=== PATIENT | male | born 1950 | race Caucasian/White ===

== ENCOUNTER 2018-01-24 16:46 | Emergency (ER) | payer MEDICARE, OTHER ==
[~2018-01-24 16:46] MED LIST changes: -ASPI-1471 PO; -LEVE750T74 PO
[2018-01-24] MEDS ORDERED: ASPI-1471 PO (16:52)
[2018-01-24] MEDS ORDERED: EMS NS 0.9%(*) 1000 ML BAG 1,000 ML IV ONE (17:00)
--- NOTE | 2018-01-24 17:03 | ER Report ---
History and Physical Time Seen By MD: 16:53 Hx. of Stated Complaint: PT WAS HAVING BBQ WITH FAMILY WHEN HE DEVELOPED CP, HAD A "HOT FLASH" THEN HAD A SEIZURE HPI/ROS CHIEF COMPLAINT: Seizure HISTORY OF PRESENT ILLNESS: 67-year-old male patient presents to the emergency room by EMS with complaint of a seizure. Patient states that he was a home and felt very hot. He came inside and sat down catch. His states when he did that that he started breathing heavily, and that lasted for approximately 2 minutes. He did have some rhythmic movements, when that stopped he was confused. He was unable to tell the EMS crew who the president was, he is unable to tell them where he was, however he did not really was. Patient at this time states that he is having chest pain, neck pain, headache, dizziness. Patient has not t aken any medication for this. REVIEW OF SYSTEMS: Respiratory: No cough, no dyspnea. Cardiovascular: No chest pain, no palpitations. Gastrointestinal: No vomiting, no abdominal pain. Musculoskeletal: No back pain. Allergies: Coded Allergies: No Known Drug Allergies (Verified , 01/24/18) Home Meds Active Scripts Levetiracetam (KEPPRA) 750 Mg Tablet, 750 MG PO BID, #180 TAB Prov:IVON NDIAYE ART HISTORY PROFESSOR 01/24/18 Reported Medications Aspirin (ASPIR 81) 81 Mg Tablet.dr, 81 MG PO QDAY, TAB 01/24/18 Lutein (Lutein) 20 Mg Capsule, 20 MG PO DAILY, 0 Refills 05/19/11 Cholecalciferol (Vitamin D) 2,000 Unit Capsule, 2000 UNIT PO DAILY, 0 Refills 05/19/11 Atorvastatin (Lipitor) 10 Mg Tab, 20 MG PO QAM 07/31/06 Discontinued Scripts Meclizine Hcl (MECLIZINE HCL) 25 Mg Tab.chew, 50 MG PO Q6H for dizziness, #60 TAB.CHEW Prov:TOYA OCASIO DO 03/28/15 Ondansetron (ZOFRAN ODT) 4 Mg Tab.rapdis, 8 MG PO Q6H for Nausea, #15 Prov:TOYA OCASIO DO 03/28/15 Mometasone Furoate (NASONEX) 17 Gm [place], 2 SPRAYS NA DAILY, #1 SPRAY 2 sprays each nostril daily Prov:TOYA OCASIO DO 03/28/15 Past Medical/Surgical History Patient has a past medical history of hyperlipidemia, hand fracture, alcohol use. Patient has surgical history of cataract surgery, surgery for detached retina in the left eye, laminectomy, rotator cuff surgery, appendectomy. Patient has a family medical history of cancer. Reviewed Nurses Notes: Yes Hx Smoking: No Smoking Status: Never Smoker Hx Substance Use Disorder: No Hx Alcohol Use: Yes (VERY LITTLE) Constitutional Vital Sign - Last 24 Hours 01/24/18 01/24/18 01/24/18 01/24/18 16:47 17:00 17:15 17:36 Temp 98.2 Pulse 80 75 70 Resp 16 13 8 B/P (MAP) 146/71 128/66 (86) 125/65 (85) Pulse Ox 92 93 91 O2 Delivery Room Air 01/24/18 01/24/18 01/24/18 01/24/18 17:45 18:00 18:15 18:20 Pulse 65 65 67 67 Resp 15 12 21 18 B/P (MAP) 126/67 (86) Pulse Ox 92 93 93 93 01/24/18 01/24/18 01/24/18 01/24/18 18:30 18:35 18:50 19:00 Pulse 66 69 Resp 18 19 B/P (MAP) 134/71 (92) 144/78 (100) Pulse Ox 93 94 01/24/18 01/24/18 01/24/18 01/24/18 19:05 19:20 19:25 19:30 Pulse 64 65 63 Resp 17 20 15 B/P (MAP) 136/74 (94) Pulse Ox 93 93 95 01/24/18 01/24/18 01/24/18 01/24/18 19:40 19:55 20:00 20:10 Pulse 61 63 73 Resp 12 27 16 B/P (MAP) 145/82 (103) Pulse Ox 94 93 01/24/18 01/24/18 01/24/18 01/24/18 20:25 20:30 20:40 20:55 Pulse 64 59 58 Resp 10 22 21 B/P (MAP) 127/72 (90) Pulse Ox 93 93 95 01/24/18 01/24/18 01/24/18 01/24/18 21:00 21:15 21:30 21:45 Pulse 60 61 60 62 Resp 12 12 16 16 B/P (MAP) 135/70 (91) 133/68 (89) Pulse Ox 91 94 93 92 01/24/18 01/24/18 22:00 22:15 Pulse 59 57 Resp 10 15 B/P (MAP) 135/70 (91) Pulse Ox 91 92 Physical Exam General Appearance: The patient is alert, has no immediate need for airway protection and no current signs of toxicity. Eyes: Pupils equal and round no injection. Extra ocular movements intact. ENT: Patient does have blood on his lips, he has bitten the tip of his tongue. Respiratory: Chest is non tender, lungs are clear to auscultation. Cardiac: regular rate and rhythm Gastrointestinal: Abdomen is soft and non tender, no masses, bowel sounds normal. Musculoskeletal: Neck: Neck is supple and non tender. Extremities have full range of motion and are non tender. Skin: No rashes or lesions. Neuro: Patient is alert and oriented 2, cranial nerves II through XII grossly intact. Patient has equal strength bilaterally. DIFFERENTIAL DIAGNOSIS: After history and physical exam differential diagnosis was considered for a seizure including but not limited to electrolyte abnormality, alcohol withdrawal, medication noncompliance, head injury, and breakthrough seizure. Medical Decision Making Data Points Result Diagram: 01/24/18 1630 01/24/18 1630 Laboratory Hematology Test 01/24/18 08:23 01/24/18 16:30 01/24/18 17:40 01/24/18 20:15 Urine Color Yellow Urine Clarity Slightly-cloudy Urine pH 5.0 pH (4.8-9.5) Urine Specific [place] 1.023 Urine Protein Negative mg/dL (NEGATIVE) Urine Glucose (UA) Negative mg/dL (NEGATIVE) Urine Ketones Negative mg/dL (NEGATIVE) Urine Blood Negative (NEGATIVE) Urine Nitrite Negative (NEGATIVE) Urine Bilirubin Negative (NEGATIVE) Urine Urobilinogen Negative mg/dL (0.2-1.9) Urine Leukocyte Esterase Negative (NEGATIVE) Urine RBC 3 /HPF (0-2/HPF) Urine WBC 1 /HPF (0-5/HPF) Urine Squamous Epithelial Cells None /LPF (</=FEW) Urine Bacteria Negative /HPF (NONE-FEW) Urine Hyaline Casts Few /LPF (NONE-FEW) Urine Mucus Few /HPF (NONE-FEW) Red Blood Count 4.66 M/uL (4.00-5.60) Mean Corpuscular Volume 96.7 fL (80.0-96.0) Mean Corpuscular Hemoglobin 31.7 pg (26.0-33.0) Mean Corpuscular Hemoglobin Concent 32.8 g/dL (32.0-36.0) Red Cell Distribution Width 13.8 % (11.5-14.5) Mean Platelet Volume 9.2 fL (7.2-11.1) Neutrophils (%) (Auto) 49.8 % (39.4-72.5) Lymphocytes (%) (Auto) 38.7 % (17.6-49.6) Monocytes (%) (Auto) 7.3 % (4.1-12.4) Eosinophils (%) (Auto) 3.8 % (0.4-6.7) Basophils (%) (Auto) 0.4 % (0.3-1.4) Nucleated RBC Relative Count (auto) 0.1 /100WBC Neutrophils # (Auto) 9.5 K/uL (2.0-7.4) Lymphocytes # (Auto) 7.4 K/uL (1.3-3.6) Monocytes # (Auto) 1.4 K/uL (0.3-1.0) Eosinophils # (Auto) 0.7 K/uL (0.0-0.5) Basophils # (Auto) 0.1 K/uL (0.0-0.1) Nucleated RBC Absolute Count (auto) 0.01 K/uL Sodium Level 141 mmol/L (137-145) Potassium Level 3.1 mmol/L (3.5-5.0) Chloride Level 101 mmol/L (98-107) Carbon Dioxide Level 14 mmol/L (22-30) Blood Urea Nitrogen 18 mg/dl (9-21) Creatinine 1.20 mg/dl (0.66-1.25) Glomerular Filtration Rate Calc > 60.0 Random Glucose 96 mg/dl (75-110) Calcium Level 9.3 mg/dl (8.4-10.2) Magnesium Level 2.7 mg/dl (1.7-2.2) Total Bilirubin 0.5 mg/dl (0.2-1.3) Aspartate Amino Transf (AST/SGOT) 29 U/L (0-35) Alanine Aminotransferase (ALT/SGPT) 27 U/L (0-56) Alkaline Phosphatase 63 U/L (0-126) Troponin I < 0.012 ng/ml Total Protein 7.9 g/dl (6.3-8.2) Albumin 4.9 g/dl (3.5-5.0) Urine Opiates Screen Negative Urine Barbiturates Screen Negative Ur Tricyclic Antidepressants Screen Negative Urine Phencyclidine Screen Negative Urine Amphetamines Screen Negative Urine Benzodiazepines Screen Negative Urine Cocaine Screen Negative Urine Cannabinoids Screen Positive CSF Appearance Clear (CLEAR) CSF Color Colorless (COLORLESS) CSF WBC 19 /mm3 (0-5) CSF RBC 712 /mm3 CSF Glucose 52 mg/dl CSF Total Protein 76 mg/dl (15-50) Haemophilus influenzae B Antigen Negative (NEGATIVE) Neisseria meningitidis A/Y Antigen Negative (NEGATIVE) Neisseria meningitidis C/W135 Ag Negative (NEGATIVE) N. meningitidis B/E.coli K1 Ag Negative (NEGATIVE) Group B Streptococcus Antigen Negative (NEGATIVE) Streptococcus pneumoniae Antigen Negative (NEGATIVE) Chemistry Test 01/24/18 08:23 01/24/18 16:30 01/24/18 17:40 01/24/18 20:15 Urine Color Yellow Urine Clarity Slightly-cloudy Urine pH 5.0 pH (4.8-9.5) Urine Specific [place] 1.023 Urine Protein Negative mg/dL (NEGATIVE) Urine Glucose (UA) Negative mg/dL (NEGATIVE) Urine Ketones Negative mg/dL (NEGATIVE) Urine Blood Negative (NEGATIVE) Urine Nitrite Negative (NEGATIVE) Urine Bilirubin Negative (NEGATIVE) Urine Urobilinogen Negative mg/dL (0.2-1.9) Urine Leukocyte Esterase Negative (NEGATIVE) Urine RBC 3 /HPF (0-2/HPF) Urine WBC 1 /HPF (0-5/HPF) Urine Squamous Epithelial Cells None /LPF (</=FEW) Urine Bacteria Negative /HPF (NONE-FEW) Urine Hyaline Casts Few /LPF (NONE-FEW) Urine Mucus Few /HPF (NONE-FEW) White Blood Count 19.1 k/uL (4.5-11.0) Red Blood Count 4.66 M/uL (4.00-5.60) Hemoglobin 14.8 g/dL (14.0-18.0) Hematocrit 45.0 % (42.0-52.0) Mean Corpuscular Volume 96.7 fL (80.0-96.0) Mean Corpuscular Hemoglobin 31.7 pg (26.0-33.0) Mean Corpuscular Hemoglobin Concent 32.8 g/dL (32.0-36.0) Red Cell Distribution Width 13.8 % (11.5-14.5) Platelet Count 314 K/uL (150-450) Mean Platelet Volume 9.2 fL (7.2-11.1) Neutrophils (%) (Auto) 49.8 % (39.4-72.5) Lymphocytes (%) (Auto) 38.7 % (17.6-49.6) Monocytes (%) (Auto) 7.3 % (4.1-12.4) Eosinophils (%) (Auto) 3.8 % (0.4-6.7) Basophils (%) (Auto) 0.4 % (0.3-1.4) Nucleated RBC Relative Count (auto) 0.1 /100WBC Neutrophils # (Auto) 9.5 K/uL (2.0-7.4) Lymphocytes # (Auto) 7.4 K/uL (1.3-3.6) Monocytes # (Auto) 1.4 K/uL (0.3-1.0) Eosinophils # (Auto) 0.7 K/uL (0.0-0.5) Basophils # (Auto) 0.1 K/uL (0.0-0.1) Nucleated RBC Absolute Count (auto) 0.01 K/uL Glomerular Filtration Rate Calc > 60.0 Calcium Level 9.3 mg/dl (8.4-10.2) Magnesium Level 2.7 mg/dl (1.7-2.2) Total Bilirubin 0.5 mg/dl (0.2-1.3) Aspartate Amino Transf (AST/SGOT) 29 U/L (0-35) Alanine Aminotransferase (ALT/SGPT) 27 U/L (0-56) Alkaline Phosphatase 63 U/L (0-126) Troponin I < 0.012 ng/ml Total Protein 7.9 g/dl (6.3-8.2) Albumin 4.9 g/dl (3.5-5.0) Urine Opiates Screen Negative Urine Barbiturates Screen Negative Ur Tricyclic Antidepressants Screen Negative Urine Phencyclidine Screen Negative Urine Amphetamines Screen Negative Urine Benzodiazepines Screen Negative Urine Cocaine Screen Negative Urine Cannabinoids Screen Positive CSF Appearance Clear (CLEAR) CSF Color Colorless (COLORLESS) CSF WBC 19 /mm3 (0-5) CSF RBC 712 /mm3 CSF Glucose 52 mg/dl CSF Total Protein 76 mg/dl (15-50) Haemophilus influenzae B Antigen Negative (NEGATIVE) Neisseria meningitidis A/Y Antigen Negative (NEGATIVE) Neisseria meningitidis C/W135 Ag Negative (NEGATIVE) N. meningitidis B/E.coli K1 Ag Negative (NEGATIVE) Group B Streptococcus Antigen Negative (NEGATIVE) Streptococcus pneumoniae Antigen Negative (NEGATIVE) Toxicology Test 01/24/18 17:40 Urine Opiates Screen Negative Urine Barbiturates Screen Negative Ur Tricyclic Antidepressants Screen Negative Urine Phencyclidine Screen Negative Urine Amphetamines Screen Negative Urine Benzodiazepines Screen Negative Urine Cocaine Screen Negative Urine Cannabinoids Screen Positive Urinalysis Test 01/24/18 08:23 Urine Color Yellow Urine Clarity Slightly-cloudy Urine pH 5.0 pH (4.8-9.5) Urine Specific [place] 1.023 Urine Protein Negative mg/dL (NEGATIVE) Urine Glucose (UA) Negative mg/dL (NEGATIVE) Urine Ketones Negative mg/dL (NEGATIVE) Urine Blood Negative (NEGATIVE) Urine Nitrite Negative (NEGATIVE) Urine Bilirubin Negative (NEGATIVE) Urine Urobilinogen Negative mg/dL (0.2-1.9) Urine Leukocyte Esterase Negative (NEGATIVE) Urine RBC 3 /HPF (0-2/HPF) Urine WBC 1 /HPF (0-5/HPF) Urine Squamous Epithelial Cells None /LPF (</=FEW) Urine Bacteria Negative /HPF (NONE-FEW) Urine Hyaline Casts Few /LPF (NONE-FEW) Urine Mucus Few /HPF (NONE-FEW) EKG/Imaging EKG Interpretation 12 lead EKG: Rhythm: normal sinus rhythm [place]: normal QRS: normal ST segments: normal Imaging CHEST SINGLE AP Indication: Seizure.. Comparison: None available Findings: Cardiomediastinal silhouette and pulmonary vessels within normal limits. There is no focal infiltrate or lobar consolidation. No pneumothorax or pleural effusion. No nodule. Upper abdomen is unremarkable. No acute bony abnormality. IMPRESSION: 1. No acute cardiopulmonary process. Report Dictated By: Lazaro Brito at 01/24/2018 5:52 PM Report E-Signed By: Lazaro Brito at 01/24/2018 5:[address] Head without contrast Indication: Seizure. Comparison: None available Technique: Axial CT images were obtained through the brain from the skull base to the vertex without administration of IV contrast. Reformatted coronal and sagittal images were also obtained. One of the following dose optimization techniques was utilized in the performance of this exam: automated exposure control; adjustment of the mA and/or kV according to the patient's size; or use of an iterative reconstruction technique. Specific details can be referenced in the facility's radiology CT exam operational policy. Findings: No evidence of mass, mass effect, or midline shift. No acute intracranial hemorrhage or acute territorial infarction. No extra-axial fluid collection or hydrocephalus. No abnormal density. [place]/white matter differentiation appears normal. Bony structures show no fractures or lesions. The visualized paranasal sinuses and mastoid air cells are clear. IMPRESSION: 1. No acute intracranial abnormality. Report Dictated By: Lazaro Brito at 01/24/2018 5:49 PM Report E-Signed By: Lazaro Brito at 01/24/2018 5:52 PM ED Course/Re-evaluation ED Course Patient was admitted to exam room, history and physical were obtained. Differential diagnoses were considered. On exam patient is alert and oriented to himself and location. Patient is not oriented to date or present time. Patient did not have any weakness, he had equal strength bilaterally, he had no facial droop. A IV was started, CBC, CMP, urinalysis were obtained. CT scan of the head and chest x-ray were done. CT scan of the head was negative, chest x-ray was also negative. Patient had an elevated white count of 19,000 with no left shift, CMP was unremarkable except for he did have a low CO2 of 14. EKG was done which showed a normal sinus rhythm. I discussed the case with Dr. [place]jon, neurolog[place] [facility] [place] he felt the patient did need to have anticonvulsants. He wanted me to press on him that he was unable to drive until cleared by a neurologist. He also was concerned about the elevated white count. He recommended doing a lumbar puncture to rule out any meningitis, even though the patient had no meningeal signs or fevers. The lumbar puncture was done as described below. We did give him some Keppra, 1 g, and monitoring for 2 hours after that. During that time were waiting for the lab results. Patient did have a red blood cell count of 712 and 533 on tubes one and 3 from the lumbar puncture, white count was 19, protein was 52 and glucose was normal. During this time patient has not had a repeat seizure in the emergency room. I did discuss the case with Dr. Ritter, hospitalist, who felt that he was concerned about the elevated red blood cells. He recommended talking with neurology. I did speak with Dr. Morejon, he felt the patient likely had an aseptic meningitis, but felt uncomfortable with the blood and did feel the patient should probably be tra nsferred to a facility in [place]. At that time I did call and discuss the case with Dr. Ureña, neurologist at [facility], I reviewed the case with him including the spinal tap and the lab results. He felt that the likelihood of a meningitis was unlikely, as patient does not have any meningeal signs. He said that the blood was likely from a traumatic tap. His recommendation was that we can go ahead and discharge patient home as long as I felt comfortable with that. Or if I felt uncomfortable that patient could be admitted and monitored overnight. I discussed with him that the patient has no complaints, no fever and did not have a headache until I done the lumbar puncture. I believe that is likely cause of his headache. I felt that the patient could go home as long as he felt up to that. I discussed this with patient and his . They prefer to go home. I did give him strict instructions on to return to the emergency room with any seizures, worse headache of his en tire life or the development of fevers. Patient is verbalized understanding and agreement with plan. We will go ahead and discharge him home at this time with close follow-up to neurology. Procedure: Lumbar puncture. Indication: Seizure with elevated white count After verbal informed consent from patient explaining the risks including infection, bleeding, and neurologic damage, a lumbar puncture was performed after the patient was prepped and draped in the usual fashion. The back was anesthetized with 1% lidocaine. Approximately 4 cc of clear fluid was obtained. Opening pressure was not obtained. There were no complications. The procedure was performed by myself under the direct supervision of Dr. Abrams. Decision to Disposition Date: Jan 24, 2018 Decision to Disposition Time: 22:52 Depart Departure Latest Vital Signs Vital Signs Date Time Temp Pulse Resp B/P (MAP) Pulse Ox O2 Delivery O2 Flow Rate FiO2 9/16/18 22:15 57 15 92 01/24/18 22:00 135/70 (91) 01/24/18 16:47 98.2 Room Air Impression: Primary Impression: Seizure Condition: Improved Disposition: HOME OR SELF-CARE Referrals: NERISSA LOCKHART MD (PCP) New Scripts Levetiracetam (KEPPRA) 750 Mg Tablet 750 MG PO BID, #180 TAB Prov: IVON NDIAYE 01/24/18 Patient Instructions: New-Onset Seizure in Adults (ED) Additional Instructions: Increase fluid intake. Get plenty of rest. No driving until you are cleared by a neurologist. Follow up with a Neurologist [place]: [facility] [address] [place], [place] [facility] [address] [place], [place] Return to the ER if you develop fevers, the worse headache of your life or you have another seizure. Follow up with your primary care provider in the next 1-2 weeks. Take the medication as prescribed. IVON NDIAYE Jan 24, 2018 17:03
[2018-01-24 17:11] LABS: PLATELET COUNT, AUTOMATED 314 K/uL (150-450)
--- NOTE | 2018-01-24 17:55 | RADIOLOGY IMAGING REPORT ---
FACILITY: [facility] [place] PATIENT NAME: Malachi Owusu : 1950 MR: [id number] V: [id number] EXAM DATE: ORDERING PHYSICIAN: IVON NDIAYE TECHNOLOGIST: Location: [facility] [place] Patient: Malachi Owusu : 1950 Visit/Account:[id number] Date of Sevice: 01/24/2018 CT Head without contrast Indication: Seizure. Comparison: None available Technique: Axial CT images were obtained through the brain from the skull base to the vertex without administration of IV contrast. Reformatted coronal and sagittal images were also obtained. One of the following dose optimization techniques was utilized in the performance of this exam: autom ated exposure control; adjustment of the mA and/or kV according to the patient's size; or use of an i terative reconstruction technique. Specific details can be referenced in the facility's radiology CT exam operational policy. Findings: No evidence of mass, mass effect, or midline shift. No acute intracranial hemorrhage or acute territorial infarction. No extra-axial fluid collection or hydrocephalus. No abnormal density. [place]/white matter differentiat ion appears normal. Bony structures show no fractures or lesions. The visualized paranasal sinuses and mastoid air cells are clear. IMPRESSION: 1. No acute intracranial abnormality. Report Dictated By: Lazaro Brito at 01/24/2018 5:49 PM Report E-Signed By: Lazaro Brito at 01/24/2018 5:52 PM WSN:[id number]
--- NOTE | 2018-01-24 17:57 | RADIOLOGY IMAGING REPORT ---
FACILITY: [facility] [place] PATIENT NAME: Malachi Owusu : 1950 MR: [id number] V: [id number] EXAM DATE: ORDERING PHYSICIAN: IVON NDIAYE TECHNOLOGIST: Location: [facility] Patient: Malachi Owusu : 1950 Visit/Account:[id number] Date of Sevice: 01/24/2018 CHEST SINGLE AP Indication: Seizure.. Comparison: None available Findings: Cardiomediastinal silhouette and pulmonary vessels within normal limits. There is no focal infiltrate or lobar consolidation. No pneumothorax or pleural effusion. No nodule. Upper abdomen is unremarkable. No acute bony abnormality. IMPRESSION: 1. No acute cardiopulmonary process. Report Dictated By: Lazaro Brito at 01/24/2018 5:52 PM Report E-Signed By: Lazaro Brito at 01/24/2018 5:53 PM WSN:[id number]
--- NOTE | 2018-01-24 18:10 | EKG ---
[place] [facility] [place] CARMELINA DICKERSON : [id number] MR: [id number] V: [id number] EXAM DATE: ORDERING PHYSICIAN: IVON NDIAYE TECHNOLOGIST: STEPHANIE Hidalgo Reason : NEURO Blood Pressure : / mmHG Vent. Rate : 082 BPM Atrial Rate : 082 BPM P-R Int : 130 ms QRS Dur : 102 ms QT Int : 392 ms P-R-T Axes : 068 066 068 degrees QTc Int : 457 ms Sinus rhythm Nonspecific ST findings inferior leads Possible left atrial enlargement Confirmed by NELSON HOYT ([id number] on 01/25/2018 6:37:40 AM Referred By: Confirmed By:NELSON HOYT
[2018-01-24] MEDS ORDERED: levETIRAcetam(*)500 MG/5 ML VI 500 MG in NS(*) 0.9% 100 ML BAG 100 ML IVPB ONE (18:30)
[2018-01-24] MEDS ORDERED: NS(*) 0.9% 1000 ML BAG 1,000 ML IV ONE (19:40)
[2018-01-24 22:00] VITALS: BP 135/70
[2018-01-24] MEDS ORDERED: LEVE750T74 PO (22:54)
[2018-01-24] MEDS ORDERED: levETIRAcetam 500 MG TAB PO ONE (23:05)
== END 2018-01-24 23:28 | disposition home or self-care (01) ==
LOC: ER 16:58
DX: R56.9 Unspecified convulsions (principal)
CPT/HCPCS: 62270; 70450; 71045; 80305; 81001; 82945; 83735; 84157; 84484; 85025; 87070; 87205; 87899; 89050; 93005; 96361; 96365; 99285; A9270; J1953; J7030; J7050; 82040; 82247; 82310; 82374; 82435; 82565; 82947; 84075; 84132; 84155; 84295; 84450; 84460; 84520

== ENCOUNTER → 2018-01-24 | Outpatient (CLI) | payer MEDICARE, OTHER ==
[~2018-01-24] MED LIST: ASPI-1471 PO; ATR10 PO; CHOL200021 PO; DOC100 PO; LEVE750T74 PO; LUTE20CA11 PO; MECL25TA27 PO; MOMR; NIA100 PO; ONDA4TAB PO; PER PO
== END ==
LOC: AMB 16:22
PROVIDERS: ATTEND Nurse Practitioner
DX: R07.9 Chest pain, unspecified (principal); R06.00 Dyspnea, unspecified; R56.9 Unspecified convulsions
CPT/HCPCS: A0425; A0427

== ENCOUNTER → 2018-02-03 | Outpatient (CLI) | payer MEDICARE, OTHER ==
[~2018-02-03] MED LIST changes: +ASPI-1471 PO; +LEVE750T74 PO
--- NOTE | 2018-02-03 11:26 | RADIOLOGY IMAGING REPORT ---
[place] [facility] [place] NAME: Malachi Owusu : 1950 MR: [id number] V: [id number] EXAM DATE: ORDERING PHYSICIAN: NERISSA LOCKHART TECHNOLOGIST: Location: [facility] Patient: Malachi Owusu : 1950 Visit/Account:[id number] Date of Sevice: 02/03/2018 BRAIN W/O CONTRAST ADDITIONAL PERTINENT HISTORY: Seizure one week ago COMPARISON STUDIES: CT head January 24, 2018 TECHNIQUE: Multi-planar, multi-sequence brain MRI was performed without IV contrast administration. FINDINGS: Ventricles / sulci / fissures: Negative. Masses / hemorrhage / midline shift: Negative. Intra-axial: There are numerous small foci of increased FLAIR and T2 signal intensity seen throughou t the periventricular and subcortical white matter. This is most prominent in the frontal and pariet al lobes. There is no associated hemorrhage, mass effect or restricted diffusion. Extra-axial fluid collections: Negative. Intracranial vasculature and dural sinuses: Negative. Skull base / calvarium: Negative. Visualized mastoid air cells / paranasal sinuses: There is mucosal thickening in the ethmoid sinuses and to lesser extent frontal sinuses. Mucosal thickening is also noted in the medial aspect of the l eft maxillary sinus Orbits: Negative. Scalp: Negative Upper neck:Negative. IMPRESSION: There are numerous small foci of increased FLAIR and T2 signal intensity throughout the periventricul ar white matter and subcortical white matter which is most prominent in the frontal and parietal lobe s. There is no associated hemorrhage, mass effect or restricted diffusion. The appearance is nonspe cific with the differential diagnosis including chronic microvascular ischemic changes vasculitis or demyelinating process. Metastases are much less likely given the lack of mass effect. Further evalu ation with contrast-enhanced MR could be performed. Mucosal thickening in the ethmoid frontal and left maxillary sinuses Report Dictated By: Cristina Painter MD at 02/03/2018 10:50 AM Report E-Signed By: Cristina Painter MD at 02/03/2018 11:22 AM WSN:[id number]
== END ==
LOC: MRI 07:26
PROVIDERS: ATTEND Family Medicine
DX: R90.82 White matter disease, unspecified (principal)
CPT/HCPCS: 70551

== ENCOUNTER → 2018-02-08 | Outpatient (CLI) | payer MEDICARE, OTHER ==
[~2018-02-08] MED LIST changes: +GADOBENATE 529MG/1ML 15ML VIAL IVP ONE
--- NOTE | 2018-02-08 13:08 | RADIOLOGY IMAGING REPORT ---
FACILITY: [facility] PATIENT NAME: Malachi Owusu : 1950 MR: [id number] V: [id number] EXAM DATE: ORDERING PHYSICIAN: NERISSA LOCKHART TECHNOLOGIST: Location: [facility] [place] Patient: Malachi Owusu : 1950 Visit/Account:[id number] Date of Sevice: 02/08/2018 BRAIN W CONTRAST INDICATION: Seizure. Abnormal brain MRI. COMPARISON: Noncontrast brain MRI dated 02/03/2018. TECHNIQUE: Precontrast axial T1. Postcontrast axial and coronal T1 with fat saturation. FINDINGS/IMPRESSION: No abnormal contrast enhancement. Report Dictated By: Juan Carlos Rae MD at 02/08/2018 12:59 PM Report E-Signed By: Juan Carlos Rae MD at 02/08/2018 1:04 PM WSN:[id number]
== END ==
LOC: MRI 00:58
PROVIDERS: ATTEND Family Medicine
DX: R93.0 Abnormal findings on diagnostic imaging of skull and head, not elsewhere classified (principal)
CPT/HCPCS: 70552; A9577

== ENCOUNTER → 2018-10-25 | Outpatient (CLI) | payer MEDICARE, OTHER ==
[~2018-10-25] MED LIST changes: -GADOBENATE 529MG/1ML 15ML VIAL IVP ONE
== END ==
LOC: LAB 14:55
PROVIDERS: ATTEND Psychiatry & Neurology Neurology
DX: R56.9 Unspecified convulsions (principal)
CPT/HCPCS: 36415; 80177